=== PATIENT | male | born 1955 | race Caucasian/White ===

== ENCOUNTER 2017-01-11 17:48 | Emergency (ER) | payer MEDICAID ==
[~2017-01-11] VITALS: Ht 188 cm; Wt 96.5 kg
[~2017-01-11 17:48] MED LIST: ACET325T14 PO; AMOX1TAB64 PO; APIX5TAB PO; ASPI-496 PO; BUTA-177 PO; CALC200T56 PO; FOLI-17 PO; FURO-93 PO; Folic Acid PO; HYDR-3237 PO; HYDR-3240 PO; LANS30CA60 PO; LEVE10007 PO; LEVE100S6 PO; LEVE500T8 PO; LEVE750T37 PO; LIDO5JEL4 TP; LISI-167 PO; LISI1POW PO; LISI1TAB3 PO; LORA-170 PO; LORA0.5T PO; LORA10TA3 PO; LOSA100T6 PO; METO25TA35 PO; POTA8CAP PO; PRAV10TA2 PO; PRAV20TA2 PO; RANI150C PO; ROSU40TA PO; THIA100T6 PO; TRAM50TA2 PO; TRAZ50TA18 PO; cholesterol med
[2017-01-11] MEDS ORDERED: SODIUM CHLORIDE 0.9% 1,000 ML IV ONE (17:57)
[2017-01-11] MEDS ORDERED: SODIUM CHLORIDE FLUSH 10ML SYR IVF ONE (18:00)
[2017-01-11 18:15] LABS: HEMATOCRIT 43.2 % (39.2-51.8); HEMOGLOBIN 14.2 g/dL (13.7-18.0); WHITE BLOOD COUNT 7.3 x10^3/uL (3.4-10)
[2017-01-11] MEDS ORDERED: APIX2.5T PO (18:15)
[2017-01-11] MEDS ORDERED: CEFTRIAXONE PMX 1GM/50ML 50 ML IV ONE (18:30)
[2017-01-11] MEDS ORDERED: PHARMACOKINETIC CONSULTATION MC ONE (18:30)
[2017-01-11] MEDS ORDERED: VANCOMYCIN PER PHARMACY MC PRN (18:30)
[2017-01-11] MEDS ORDERED: CEFTRIAXONE PMX 1GM/50ML 50 ML ONE (18:31)
[2017-01-11 18:32] LABS: ASPARTATE AMINO TRANSFERASE 24 U/L (15-37); BLOOD UREA NITROGEN 5 mg/dL (7-18)
[2017-01-11] MEDS ORDERED: MORPHINE SULFATE 4 MG/ML, 1ML ONE ×2 (18:38→20:12)
[2017-01-11] MEDS: MORPHINE SULFATE 4 MG/ML, 1ML IVPush PRN ×2 (18:55→20:14)
[2017-01-11] MEDS ORDERED: VANCOMYCIN 2,000 MG in SODIUM CHLORIDE 0.9% 500 ML IV ONE (19:00)
[2017-01-11 21:30] VITALS: BP 137/97
== END 2017-01-11 21:34 | disposition home or self-care (01) ==
LOC: ED 18:34
DX: L03.116 Cellulitis of left lower limb (principal); E78.5 Hyperlipidemia, unspecified; K21.9 Gastro-esophageal reflux disease without esophagitis; G40.909 Epilepsy, unspecified, not intractable, without status epilepticus; Z88.0 Allergy status to penicillin; Z86.73 Personal history of transient ischemic attack (TIA), and cerebral infarction without residual deficits; Z86.718 Personal history of other venous thrombosis and embolism
CPT/HCPCS: 36415; 71010; 80053; 85025; 93971; 96365; 96366; 96367; 96375; 99285; J0696; J3370; J7030; J7040

== ENCOUNTER 2017-01-12 12:41 | Emergency (ER) | payer MEDICAID ==
[~2017-01-12] VITALS: Ht 188 cm; Wt 96.2 kg
[~2017-01-12 12:41] MED LIST changes: +APIX2.5T PO
[2017-01-12] MEDS ORDERED: KETOROLAC 30 MG/1 ML ONE (13:54)
[2017-01-12] MEDS ORDERED: KETOROLAC 30 MG/1 ML IM ONE (14:00)
[2017-01-12 14:22] VITALS: BP 120/80
== END 2017-01-12 14:25 | disposition home or self-care (01) ==
LOC: ED 13:40
DX: M79.89 Other specified soft tissue disorders (principal)
CPT/HCPCS: 96372; 99283; J1885

== ENCOUNTER 2017-03-23 20:12 | Inpatient (IN) | payer MEDICAID ==
[~2017-03-23] VITALS: Ht 188 cm; Wt 96.0 kg
[2017-03-23] MEDS ORDERED: SODIUM CHLORIDE FLUSH 10ML SYR IVF ONE (21:00)
[2017-03-23] MEDS ORDERED: CLINDAMYCIN PMX 600MG/50ML 50 ML IV ONE (21:00)
[2017-03-23 21:12] LABS: HEMOGLOBIN 14.4 g/dL (13.7-18.0)
[2017-03-23] MEDS ORDERED: CLINDAMYCIN PMX 600MG/50ML 50 ML ONE (21:22)
[2017-03-23] MEDS ORDERED: ACETAMINOPHEN 500 MG TABLET ONE (21:22)
[2017-03-23 21:23] LABS: ASPARTATE AMINO TRANSFERASE 24 U/L (15-37); BLOOD UREA NITROGEN 10 mg/dL (7-18)
[2017-03-23] MEDS ORDERED: ACETAMINOPHEN 500 MG TABLET PO ONE (21:30)
[2017-03-23] MEDS ORDERED: SODIUM CHLORIDE FLUSH 10ML SYR IVF PRN (22:00)
[2017-03-23] MEDS ORDERED: OXYcodone IR 5MG TABLET ONE (22:55)
[2017-03-23] MEDS ORDERED: POLYETHYLENE GLYCOL 17 GM PACKET PO PRN (23:00)
[2017-03-23] MEDS ORDERED: ACETAMINOPHEN 325 MG TABLET PO PRN (23:00)
[2017-03-23] MEDS: SODIUM CHLORIDE FLUSH 10ML SYR IVF SCH (23:00)
[2017-03-23] MEDS ORDERED: LORazepam 0.5MG TABLET PO PRN (23:00)
[2017-03-23] MEDS ORDERED: BISACODYL 10 MG SUPP PR PRN (23:00)
[2017-03-23] MEDS: ROSUVASTATIN CALCIUM PO SCH (23:00)
[2017-03-23] MEDS ORDERED: ONDANSETRON 2MG/ML, 2ML IVPush PRN (23:00)
[2017-03-23 23:25] VITALS: BP 126/83
[2017-03-23] MEDS ORDERED: CRESTOR MC SCH (23:30)
[2017-03-24] MEDS: APIXABAN 2.5 MG TABLET PO SCH ×3 (00:33→21:23)
[2017-03-24] MEDS: METOPROLOL TARTRATE 50 MG TABLET PO SCH ×3 (00:33→21:23)
[2017-03-24] MEDS: LEVETIRACETAM 500 MG TABLET PO SCH ×3 (00:33→21:23)
[2017-03-24 01:10] VITALS: BP 100/65
[2017-03-24] MEDS: OXYcodone IR 5MG TABLET PO PRN ×5 (04:01→20:32)
[2017-03-24 05:30] LABS: HEMATOCRIT 38.4 % (39.2-51.8); HEMOGLOBIN 12.9 g/dL (13.7-18.0); WHITE BLOOD COUNT 4.9 x10^3/uL (3.4-10)
[2017-03-24 05:47] LABS: BLOOD UREA NITROGEN 9 mg/dL (7-18)
[2017-03-24 05:50] LABS: ASPARTATE AMINO TRANSFERASE 21 U/L (15-37)
[2017-03-24] MEDS: CLINDAMYCIN PMX 600MG/50ML 50 ML IV SCH ×3 (05:52→21:23)
[2017-03-24 06:52] VITALS: BP 110/69
[2017-03-24] MEDS ORDERED: FLU VACC QS2017-18 (36MOS+) UP/PF 0.5 ML IM-VACC ONE (08:00)
[2017-03-24] MEDS: SENNA/DOCUSATE TABLET PO SCH (09:20)
[2017-03-24] MEDS: FUROSEMIDE 20 MG/2 ML IV SCH (09:21)
[2017-03-24] MEDS: LORATADINE 10 MG TABLET PO SCH (09:21)
[2017-03-24] MEDS: SODIUM CHLORIDE FLUSH 10ML SYR IVF SCH ×2 (09:21→21:23)
[2017-03-24 12:44] VITALS: BP 119/76
[2017-03-24 19:41] VITALS: BP 118/77
[2017-03-24] MEDS: DIPHENHYDRAMINE 25 MG CAPSULE PO PRN (20:31)
[2017-03-24] MEDS: (Rosuvastatin Calcium** (Crestor**) 20 MG) PO SCH (21:00)
[2017-03-25 00:19] VITALS: BP 101/63
[2017-03-25] MEDS: OXYcodone IR 5MG TABLET PO PRN ×6 (00:24→20:32)
[2017-03-25 05:21] LABS: HEMATOCRIT 38.4 % (39.2-51.8); HEMOGLOBIN 12.8 g/dL (13.7-18.0); WHITE BLOOD COUNT 4.9 x10^3/uL (3.4-10)
[2017-03-25 05:22] LABS: ASPARTATE AMINO TRANSFERASE 13 U/L (15-37); BLOOD UREA NITROGEN 12 mg/dL (7-18)
[2017-03-25 07:07] VITALS: BP 129/82
[2017-03-25] MEDS: FUROSEMIDE 20 MG/2 ML IV SCH (07:30)
[2017-03-25] MEDS: CLINDAMYCIN PMX 600MG/50ML 50 ML IV SCH ×3 (07:30→23:18)
[2017-03-25] MEDS: SODIUM CHLORIDE FLUSH 10ML SYR IVF SCH ×2 (07:30→20:33)
[2017-03-25] MEDS: LORATADINE 10 MG TABLET PO SCH (07:30)
[2017-03-25] MEDS: LEVETIRACETAM 500 MG TABLET PO SCH ×2 (07:31→20:33)
[2017-03-25] MEDS: APIXABAN 2.5 MG TABLET PO SCH (07:31)
[2017-03-25] MEDS: SENNA/DOCUSATE TABLET PO SCH (07:32)
[2017-03-25] MEDS: METOPROLOL TARTRATE 50 MG TABLET PO SCH ×2 (07:32→20:33)
[2017-03-25 13:53] VITALS: BP 106/70
[2017-03-25 19:21] VITALS: BP 110/71
[2017-03-25] MEDS: DIPHENHYDRAMINE 25 MG CAPSULE PO PRN (20:32)
[2017-03-25] MEDS: APIXABAN 5 MG TABLET PO SCH (20:33)
[2017-03-25] MEDS: (Rosuvastatin Calcium** (Crestor**) 20 MG) PO SCH (20:33)
[2017-03-26] MEDS: OXYcodone IR 5MG TABLET PO PRN ×6 (00:50→21:32)
[2017-03-26 01:16] VITALS: BP 116/74
[2017-03-26 07:51] VITALS: BP 119/73
[2017-03-26] MEDS: CLINDAMYCIN PMX 600MG/50ML 50 ML IV SCH ×3 (07:51→23:42)
[2017-03-26] MEDS: SENNA/DOCUSATE TABLET PO SCH (09:00)
[2017-03-26] MEDS: LORATADINE 10 MG TABLET PO SCH (11:33)
[2017-03-26] MEDS: APIXABAN 5 MG TABLET PO SCH ×2 (11:34→21:31)
[2017-03-26] MEDS: LEVETIRACETAM 500 MG TABLET PO SCH ×2 (11:34→21:31)
[2017-03-26] MEDS: METOPROLOL TARTRATE 50 MG TABLET PO SCH ×2 (11:34→21:31)
[2017-03-26] MEDS: FUROSEMIDE 20 MG/2 ML IV SCH (11:35)
[2017-03-26] MEDS: SODIUM CHLORIDE FLUSH 10ML SYR IVF SCH ×2 (11:36→21:32)
[2017-03-26 13:28] VITALS: BP 120/85
[2017-03-26] MEDS: DIPHENHYDRAMINE 25 MG CAPSULE PO PRN ×2 (16:13→23:42)
[2017-03-26 19:23] VITALS: BP 112/75
[2017-03-26] MEDS: (Rosuvastatin Calcium** (Crestor**) 20 MG) PO SCH (21:32)
[2017-03-27 01:10] VITALS: BP 111/73
[2017-03-27] MEDS: OXYcodone IR 5MG TABLET PO PRN ×3 (01:30→09:47)
[2017-03-27 08:00] VITALS: BP 132/83
[2017-03-27] MEDS: CLINDAMYCIN PMX 600MG/50ML 50 ML IV SCH (08:16)
[2017-03-27] MEDS: SODIUM CHLORIDE FLUSH 10ML SYR IVF SCH (08:18)
[2017-03-27] MEDS: LORATADINE 10 MG TABLET PO SCH (08:38)
[2017-03-27] MEDS: APIXABAN 5 MG TABLET PO SCH (08:39)
[2017-03-27] MEDS: LEVETIRACETAM 500 MG TABLET PO SCH (08:40)
[2017-03-27] MEDS: METOPROLOL TARTRATE 50 MG TABLET PO SCH (08:41)
[2017-03-27] MEDS: SENNA/DOCUSATE TABLET PO SCH (08:44)
[2017-03-27] MEDS: FUROSEMIDE 20 MG/2 ML IV SCH (09:42)
[2017-03-27 12:26] VITALS: BP 101/74
[2017-03-27] MEDS ORDERED: POLY17PO5 PO (13:30)
[2017-03-27] MEDS ORDERED: APIX5TAB PO (13:30)
[2017-03-27] MEDS ORDERED: OXYC5TAB3 PO (13:30)
[2017-03-27] MEDS ORDERED: SULF1TAB24 PO (13:30)
[2017-03-27] MEDS ORDERED: LACT1CAP24 PO (13:46)
[2017-03-27] MEDS ORDERED: SULFAMETH./TRIMETHOPRIM DS 800MG/160MG TABLET PO SCH (21:00)
== END 2017-03-27 15:45 | disposition home or self-care (01) | DRG 602 ==
LOC: ED 21:38 → EDIP 22:00 → 3NE 23:08 → DCLOUNGE 03-27 14:50
PROVIDERS: ADMIT Internal Medicine; ATTEND Internal Medicine
DX: L03.115 Cellulitis of right lower limb (principal); E43 Unspecified severe protein-calorie malnutrition; D68.69 Other thrombophilia; E87.1 Hypo-osmolality and hyponatremia; I71.2 Thoracic aortic aneurysm, without rupture; I82.502 Chronic embolism and thrombosis of unspecified deep veins of left lower extremity; D64.9 Anemia, unspecified; Z68.27 Body mass index [BMI] 27.0-27.9, adult; E78.5 Hyperlipidemia, unspecified; G40.909 Epilepsy, unspecified, not intractable, without status epilepticus; I10 Essential (primary) hypertension; I34.0 Nonrheumatic mitral (valve) insufficiency; K21.9 Gastro-esophageal reflux disease without esophagitis; L03.116 Cellulitis of left lower limb; Z79.01 Long term (current) use of anticoagulants; Z80.9 Family history of malignant neoplasm, unspecified; Z85.46 Personal history of malignant neoplasm of prostate; Z85.828 Personal history of other malignant neoplasm of skin; Z86.711 Personal history of pulmonary embolism; Z86.72 Personal history of thrombophlebitis; Z86.73 Personal history of transient ischemic attack (TIA), and cerebral infarction without residual deficits; Z92.3 Personal history of irradiation; Z88.0 Allergy status to penicillin
CPT/HCPCS: 36415; 71010; 80053; 80177; 83605; 83735; 83880; 84100; 85025; 87040; 90686; 93005; 93970; 96365; J1940; Q0163

== ENCOUNTER 2017-12-25 22:43 | Emergency (ER) | payer MEDICAID ==
[~2017-12-25] VITALS: Ht 188 cm; Wt 102.3 kg
[~2017-12-25 22:43] MED LIST changes: +LACT1CAP24 PO; +OXYC5TAB3 PO; +POLY17PO5 PO; +SULF1TAB24 PO; -THIA100T6 PO; +THIA100T67 PO; +TRAZ-136 PO; -TRAZ50TA18 PO
[2017-12-25] MEDS ORDERED: BACITRACIN ZINC OINT 500U/GM, 0.9 GM ONE (23:08)
[2017-12-25] MEDS ORDERED: OXYcodone/APAP 5/325MG TABLET ONE (23:15)
[2017-12-25] MEDS ORDERED: OXYcodone/APAP 5/325MG TABLET PO ONE (23:30)
[2017-12-26 00:25] VITALS: BP 124/78
== END 2017-12-26 00:49 | disposition home or self-care (01) ==
LOC: ED 23:51
DX: S06.0X0A Concussion without loss of consciousness, initial encounter (principal); S16.1XXA Strain of muscle, fascia and tendon at neck level, initial encounter; K21.9 Gastro-esophageal reflux disease without esophagitis; E78.5 Hyperlipidemia, unspecified; G40.909 Epilepsy, unspecified, not intractable, without status epilepticus; W21.03XA Struck by baseball, initial encounter; Y93.64 Activity, baseball; Y92.320 Baseball field as the place of occurrence of the external cause; Y99.8 Other external cause status
CPT/HCPCS: 70450; 72125; 99284

== ENCOUNTER 2018-05-07 08:01 | Emergency (ER) | payer MEDICAID ==
[~2018-05-07] VITALS: Ht 188 cm; Wt 103.2 kg
[~2018-05-07 08:01] MED LIST changes: -LOSA100T6 PO; +LOSA100T7 PO; -TRAZ-136 PO; +TRAZ50TA66 PO
[2018-05-07 08:11] VITALS: BP 126/85
[2018-05-07] MEDS ORDERED: HYDROcodone/APAP 5/325 TABLET ONE (08:59)
[2018-05-07] MEDS ORDERED: SULFAMETH./TRIMETHOPRIM DS 800MG/160MG TABLET ONE (08:59)
[2018-05-07] MEDS ORDERED: SULFAMETH./TRIMETHOPRIM DS 800MG/160MG TABLET PO ONE (09:00)
[2018-05-07] MEDS ORDERED: HYDROcodone/APAP 5/325 TABLET PO ONE (09:00)
[2018-05-07 09:24] LABS: ALBUMIN 3.6 g/dL (3.4-5.0); ANION GAP 5 mmol/L (5-15); CALCIUM 8.6 mg/dL (8.5-10.1); CHLORIDE 106 mmol/L (98-107); CREATININE 1.06 mg/dL (0.7-1.3)
[2018-05-07 09:40] LABS: BASOPHILS # (AUTO) 0.01 x10^3/uL (0-0.1); BASOPHILS % (AUTO) 0 % (0-1); EOSINOPHILS # (AUTO) 0.11 x10^3/uL (0-0.4); EOSINOPHILS % (AUTO) 2 % (1-7); LYMPHOCYTES # (AUTO) 1.06 x10^3/uL (1-3.4); LYMPHOCYTES % (AUTO) 19 % (22-44); MD NO; MEAN CORPUSCULAR HEMOGLOBIN 31.1 pg (27.5-34.5); MEAN CORPUSCULAR HGB CONC 34.5 g/dL (33.2-36.2); MEAN CORPUSCULAR VOLUME 90.1 fL (81-97); MEAN PLATELET VOLUME 7.9 fL (7.4-10.4); MONOCYTES # (AUTO) 0.72 x10^3/uL (0.2-0.8); MONOCYTES % (AUTO) 13 % (2-9); NEUTROPHILS # (AUTO) 3.56 x10^3/uL (1.8-6.8); NEUTROPHILS % (AUTO) 65 % (42-75); PLATELET COUNT 225 x10^3/uL (130-400); RED CELL DISTRIBUTION WIDTH 12.9 % (9.4-14.8)
[2018-05-07] MEDS ORDERED: BACITRACIN ZINC OINT 500U/GM, 0.9 GM ONE (09:42)
== END 2018-05-07 09:57 | disposition home or self-care (01) ==
LOC: ED 09:28
DX: L03.116 Cellulitis of left lower limb (principal)
CPT/HCPCS: 36415; 80048; 82040; 85025; 99284

== ENCOUNTER 2018-06-30 22:10 | Emergency (ER) | payer MEDICAID ==
[~2018-06-30] VITALS: Ht 188 cm; Wt 100.0 kg
[~2018-06-30 22:10] MED LIST changes: +LORA-247 PO; -LORA10TA3 PO; +LOSA100T14 PO; -LOSA100T7 PO
[2018-06-30] MEDS ORDERED: OMNIPAQUE 350 MG/ML, 100ML BOTTLE ONE (22:12)
[2018-06-30] MEDS ORDERED: MORPHINE SULFATE 4 MG/ML, 1ML ONE ×2 (22:16→22:55)
[2018-06-30] MEDS ORDERED: ONDANSETRON 2MG/ML, 2ML ONE (22:16)
[2018-06-30] MEDS ORDERED: SODIUM CHLORIDE FLUSH 10ML SYR IVF ONE (22:30)
[2018-06-30] MEDS ORDERED: ONDANSETRON 2MG/ML, 2ML IVPush ONE (22:30)
[2018-06-30 22:40] LABS: BASOPHILS # (AUTO) 0.01 x10^3/uL (0-0.1); BASOPHILS % (AUTO) 0 % (0-1); EOSINOPHILS # (AUTO) 0.01 x10^3/uL (0-0.4); EOSINOPHILS % (AUTO) 0 % (1-7); LYMPHOCYTES # (AUTO) 1.22 x10^3/uL (1-3.4); LYMPHOCYTES % (AUTO) 12 % (22-44); MD NO; MEAN CORPUSCULAR HEMOGLOBIN 30.8 pg (27.5-34.5); MEAN CORPUSCULAR VOLUME 90.7 fL (81-97); MEAN PLATELET VOLUME 7.3 fL (7.4-10.4); MONOCYTES # (AUTO) 0.96 x10^3/uL (0.2-0.8); MONOCYTES % (AUTO) 9 % (2-9); NEUTROPHILS # (AUTO) 8.32 x10^3/uL (1.8-6.8); NEUTROPHILS % (AUTO) 79 % (42-75); PLATELET COUNT 246 x10^3/uL (130-400); RED CELL DISTRIBUTION WIDTH 13.1 % (9.4-14.8)
[2018-06-30] MEDS: MORPHINE SULFATE 4 MG/ML, 1ML IVPush PRN ×2 (22:49→23:02)
[2018-06-30 22:51] LABS: ALANINE AMINOTRANSFERASE 26 U/L (12-78); ALBUMIN 3.7 g/dL (3.4-5.0); ANION GAP 9 mmol/L (5-15); CALCIUM 9.6 mg/dL (8.5-10.1); CHLORIDE 93 mmol/L (98-107); CREATININE 0.94 mg/dL (0.7-1.3)
--- NOTE | 2018-06-30 22:51 | NUR ---
pt complains of periumbilical pain that started last night. pain has gotten progressively worse. pt states he has had nausea and vomiting and has been constipated. pt placed on cont spo2 and bp monitor, vss. pt medicated per emar
[2018-06-30 22:53] LABS: ALKALINE PHOSPHATASE 55 U/L (45-117); BILIRUBIN,TOTAL 1.1 mg/dL (0.2-1.0); TOTAL PROTEIN 7.8 g/dL (6.4-8.2)
[2018-06-30 22:55] LABS: INTERNATIONAL NORMALIZED RATIO 0.98 (0.93-1.1); PROTHROMBIN TIME 10.4 Seconds (9.6-11.5)
[2018-06-30 23:03] LABS: MICROSCOPIC NOT IND
[2018-06-30 23:09] LABS: CULTURE INDICATED? NO
[2018-07-01] MEDS ORDERED: MORPHINE SULFATE 4 MG/ML, 1ML ONE (00:10)
--- NOTE | 2018-07-01 00:18 | NUR ---
pt's chart up for recheck
[2018-07-01] MEDS ORDERED: MORPHINE SULFATE 4 MG/ML, 1ML IVPush PRN (00:30)
[2018-07-01 01:03] VITALS: BP 158/88
--- NOTE | 2018-07-01 01:03 | NUR ---
PT GIVEN TAXI VOUCHER FOR SAFE DC. ALL PTS QUESTIONS ANSWERED. PT EXPRESSED DISSATISFACTION OF STILL BEING IN PAIN. MD CONSULTED WHOM STATES NO MORE PAIN MEDS. PT INFORMED. PT DC'D AT THIS TIME.
== END 2018-07-01 01:05 | disposition home or self-care (01) ==
LOC: ED 22:45
DX: R11.2 Nausea with vomiting, unspecified (principal); R10.30 Lower abdominal pain, unspecified; E78.5 Hyperlipidemia, unspecified; Z88.0 Allergy status to penicillin; Z86.73 Personal history of transient ischemic attack (TIA), and cerebral infarction without residual deficits
CPT/HCPCS: 36415; 74177; 80053; 81003; 83690; 85025; 85610; 85730; 96374; 96375; 99284; J2405; Q9967

== ENCOUNTER 2018-09-05 20:34 | Emergency (ER) | payer MEDICAID ==
[~2018-09-05] VITALS: Ht 188 cm; Wt 102.4 kg
--- NOTE | 2018-09-05 21:00 | NUR ---
LATE ENTRY FOR 21:00. PT C/O ATRAUMATIC RIGHT ARM BRUISING AND SWELLING X 4 DAYS. OTHEREWISE COMPLAINT FREE. ON ELAQUIS FOR HX OF CVA AND PE'S AND DVT. AORTIC ANEURYSM. PROSTATE CANCER. PT'S AOX4. RESPS EVEN AND UNLABORED. BP/SPO2 MONITORS IN PLACE. CALL LIGHT WITHIN REACH.
[2018-09-05 21:21] VITALS: BP 116/74
[2018-09-05 21:48] LABS: BASOPHILS # (AUTO) 0.02 x10^3/uL (0-0.1); BASOPHILS % (AUTO) 0 % (0-1); EOSINOPHILS # (AUTO) 0.03 x10^3/uL (0-0.4); EOSINOPHILS % (AUTO) 0 % (1-7); LYMPHOCYTES # (AUTO) 1.41 x10^3/uL (1-3.4); LYMPHOCYTES % (AUTO) 21 % (22-44); MD NO; MEAN CORPUSCULAR HEMOGLOBIN 29.6 pg (27.5-34.5); MEAN CORPUSCULAR HGB CONC 32.6 g/dL (33.2-36.2); MEAN CORPUSCULAR VOLUME 90.8 fL (81-97); MEAN PLATELET VOLUME 7.1 fL (7.4-10.4); MONOCYTES # (AUTO) 0.65 x10^3/uL (0.2-0.8); MONOCYTES % (AUTO) 10 % (2-9); NEUTROPHILS # (AUTO) 4.74 x10^3/uL (1.8-6.8); NEUTROPHILS % (AUTO) 69 % (42-75); PLATELET COUNT 264 x10^3/uL (130-400); RED BLOOD COUNT 4.27 x10^6/uL (4.38-5.82); RED CELL DISTRIBUTION WIDTH 13.9 % (9.4-14.8)
--- NOTE | 2018-09-05 21:50 | NUR ---
PT PROVIDED ICE PACK FOR LEFT ELBOW.
[2018-09-05 21:57] LABS: ALANINE AMINOTRANSFERASE 27 U/L (12-78); ALBUMIN 3.5 g/dL (3.4-5.0); ANION GAP 7 mmol/L (5-15); CALCIUM 8.6 mg/dL (8.5-10.1); CHLORIDE 104 mmol/L (98-107); CREATININE 0.91 mg/dL (0.7-1.3)
[2018-09-05 21:59] LABS: ALKALINE PHOSPHATASE 50 U/L (45-117); BILIRUBIN,TOTAL 0.3 mg/dL (0.2-1.0); TOTAL PROTEIN 6.9 g/dL (6.4-8.2)
[2018-09-05 22:02] LABS: INTERNATIONAL NORMALIZED RATIO 0.96 (0.93-1.1); PROTHROMBIN TIME 10.1 Seconds (9.6-11.5)
--- NOTE | 2018-09-05 22:22 | NUR ---
EMT APPLIED ETTA WRAP AT THIS TIME. PT TOLERATED WELL.
--- NOTE | 2018-09-05 22:28 | NUR ---
PT GIVEN DC INSTRUCTIONS. PT'S AOX4. RESPS EVEN AND UNLABORED. PT AMB TO DC WITH STEADY GAIT. NO ACUTE DISTRESS AT DC.
== END 2018-09-05 22:29 | disposition home or self-care (01) ==
LOC: ED 21:35
DX: S50.11XA Contusion of right forearm, initial encounter (principal); M70.21 Olecranon bursitis, right elbow; K21.9 Gastro-esophageal reflux disease without esophagitis; G40.909 Epilepsy, unspecified, not intractable, without status epilepticus; Z88.0 Allergy status to penicillin; X58.XXXA Exposure to other specified factors, initial encounter; Y93.89 Activity, other specified; Y92.89 Other specified places as the place of occurrence of the external cause; Y99.8 Other external cause status
CPT/HCPCS: 36415; 80053; 85025; 85610; 85730; 99283

== ENCOUNTER 2018-09-09 10:03 | Emergency (ER) | payer MEDICAID ==
[~2018-09-09] VITALS: Ht 188 cm; Wt 100.4 kg
[2018-09-09 10:05] VITALS: BP 155/100
--- NOTE | 2018-09-09 10:19 | NUR ---
RIGHT ELBOW SWELLING WITH BRUISING/BLOOD UNDER SKIN WHOLE FOREARM THAT STARTED DEVELOPING A WEEK AGO. PT HAS HAD IT WRAPPED WITH AN ETTA. CONCERNED BECAUSE HE THOUGHT BRUISING WOULD IMPROVE BY NOW AND ON BLOOD THINNER
--- NOTE | 2018-09-09 10:39 | NUR ---
ETTA APPLIED TO ELBOW BY TECH
== END 2018-09-09 10:49 | disposition home or self-care (01) ==
LOC: ED 10:40
DX: M70.21 Olecranon bursitis, right elbow (principal); K21.9 Gastro-esophageal reflux disease without esophagitis; E78.5 Hyperlipidemia, unspecified; Z86.73 Personal history of transient ischemic attack (TIA), and cerebral infarction without residual deficits; Z85.46 Personal history of malignant neoplasm of prostate; Y93.89 Activity, other specified; Z88.0 Allergy status to penicillin
CPT/HCPCS: 99282

== ENCOUNTER 2018-09-28 06:33 | Emergency (ER) | payer MEDICAID ==
[~2018-09-28] VITALS: Ht 188 cm; Wt 100.0 kg
--- NOTE | 2018-09-28 07:05 | NUR ---
PT AMBULATORY TO ROOM WITH STEADY GAIT.
--- NOTE | 2018-09-28 07:09 | NUR ---
PT PRESENTS TO ED FOR INTERMITTENT DIZZINESS AND LIGHTHEADEDNESS. PT STATES HE HAD ONE EPISODE LAST WED CAUSING A NEAR FALL TO HIS KNEES. DENIES LOC WITH THAT EPISODE. NO RECENT FALLS OR TRAUMA. AGAIN LAST NIGHT PT STATES HE BECAME LIGHTHEADED AND WAS TOLD TO BE SEEN IN ED BY HIS NEUROLOGIST. PT DENIES SYMPTOMS AT THIS TIME. HX OF STROKE. NEURO INTACT AT THIS TIME. RESTING ON GURNEY. CP MONITORS IN PLACE. CALL LIGHT IN REACH.
[2018-09-28 07:44] LABS: BASOPHILS # (AUTO) 0.04 x10^3/uL (0-0.1); BASOPHILS % (AUTO) 1 % (0-1); EOSINOPHILS # (AUTO) 0.05 x10^3/uL (0-0.4); EOSINOPHILS % (AUTO) 1 % (1-7); LYMPHOCYTES # (AUTO) 1.37 x10^3/uL (1-3.4); LYMPHOCYTES % (AUTO) 18 % (22-44); MD NO; MEAN CORPUSCULAR HEMOGLOBIN 29.5 pg (27.5-34.5); MEAN CORPUSCULAR HGB CONC 31.7 g/dL (33.2-36.2); MEAN PLATELET VOLUME 6.6 fL (7.4-10.4); MONOCYTES # (AUTO) 0.67 x10^3/uL (0.2-0.8); MONOCYTES % (AUTO) 9 % (2-9); NEUTROPHILS % (AUTO) 71 % (42-75); PLATELET COUNT 241 x10^3/uL (130-400); RED CELL DISTRIBUTION WIDTH 13.4 % (9.4-14.8)
[2018-09-28 07:46] LABS: ALBUMIN 3.2 g/dL (3.4-5.0); ANION GAP 6 mmol/L (5-15); CALCIUM 8.4 mg/dL (8.5-10.1); CHLORIDE 101 mmol/L (98-107); CREATININE 0.86 mg/dL (0.7-1.3); PROTHROMBIN TIME 10.5 Seconds (9.6-11.5)
[2018-09-28] MEDS ORDERED: POTASSIUM CHLORIDE 20 MEQ TAB.ER.PRT PO ONE (08:30)
[2018-09-28] MEDS ORDERED: POTASSIUM CHLORIDE 20 MEQ TAB.ER.PRT ONE (09:19)
--- NOTE | 2018-09-28 09:29 | NUR ---
REPORT FROM TRI ALCARAZ, ASSUMED CARE OF PT AT 0900. POTASSIUM PROVIDED PER ERP ORDER. CALL LIGHT WITHIN REACH.
[2018-09-28 10:38] VITALS: BP 124/61
== END 2018-09-28 10:48 | disposition home or self-care (01) ==
LOC: ED 07:59
DX: R55 Syncope and collapse (principal); E87.6 Hypokalemia; K21.9 Gastro-esophageal reflux disease without esophagitis; G40.909 Epilepsy, unspecified, not intractable, without status epilepticus; E78.5 Hyperlipidemia, unspecified; Z86.73 Personal history of transient ischemic attack (TIA), and cerebral infarction without residual deficits; Z85.46 Personal history of malignant neoplasm of prostate
CPT/HCPCS: 36415; 70450; 80048; 82040; 85025; 85610; 85730; 93005; 99284

== ENCOUNTER 2018-11-02 06:27 | Emergency (ER) | payer MEDICAID ==
[~2018-11-02] VITALS: Ht 188 cm; Wt 100.0 kg
--- NOTE | 2018-11-02 06:41 | NUR ---
assessment made. PA at bedside.
[2018-11-02] MEDS ORDERED: L.E.T SOLUTION TP ONE ×3 (06:53→07:08)
[2018-11-02] MEDS ORDERED: HYDROcodone/APAP 5/325 TABLET ONE (06:53)
[2018-11-02] MEDS ORDERED: HYDROcodone/APAP 5/325 TABLET PO ONE (07:00)
--- NOTE | 2018-11-02 07:03 | NUR ---
motion picture camera lens technician at bedside. patient medicated for pain. LET applied to skin tear. report to KIERAN Gonzales.
[2018-11-02 07:52] VITALS: BP 136/82
--- NOTE | 2018-11-02 07:54 | NUR ---
RIGHT SILVER SKIN TEAR CLEANED WITH DERMAL WOUND CLEANSER, XEROFORM GAUZE PLACED, 4X4 AND KERLEX WRAP. ADDITIONAL DRESSING SUPPLIES PROVIDED. Patient/Caregiver given discharge instructions and they have confirmed that they understand the instructions. Patient ambulatory with steady gait.
== END 2018-11-02 07:55 | disposition home or self-care (01) ==
LOC: ED 07:30
DX: S81.801A Unspecified open wound, right lower leg, initial encounter (principal); E78.5 Hyperlipidemia, unspecified; G40.909 Epilepsy, unspecified, not intractable, without status epilepticus; Z86.73 Personal history of transient ischemic attack (TIA), and cerebral infarction without residual deficits; Z88.0 Allergy status to penicillin; X58.XXXA Exposure to other specified factors, initial encounter; Y93.89 Activity, other specified; Y92.009 Unspecified place in unspecified non-institutional (private) residence as the place of occurrence of the external cause; Y99.8 Other external cause status
CPT/HCPCS: 99283

== ENCOUNTER 2018-11-02 18:30 | Emergency (ER) | payer MEDICAID ==
[~2018-11-02] VITALS: Ht 188 cm; Wt 103.7 kg
[2018-11-02 18:32] VITALS: BP 143/88
== END 2018-11-02 19:13 | disposition home or self-care (01) ==
LOC: ED 18:44
DX: S81.811A Laceration without foreign body, right lower leg, initial encounter (principal); K21.9 Gastro-esophageal reflux disease without esophagitis; G40.909 Epilepsy, unspecified, not intractable, without status epilepticus; Z86.73 Personal history of transient ischemic attack (TIA), and cerebral infarction without residual deficits; Z85.46 Personal history of malignant neoplasm of prostate; X58.XXXA Exposure to other specified factors, initial encounter; Y93.89 Activity, other specified; Y92.89 Other specified places as the place of occurrence of the external cause; Y99.8 Other external cause status
CPT/HCPCS: 99282

== ENCOUNTER 2018-11-13 16:40 | Emergency (ER) | payer MEDICAID ==
[~2018-11-13] VITALS: Ht 188 cm; Wt 101.0 kg
--- NOTE | 2018-11-13 18:15 | NUR ---
PT AMBULATORY TO ROOM FROM LOBBY.
[2018-11-13 18:44] LABS: BASOPHILS # (AUTO) 0.03 x10^3/uL (0-0.1); BASOPHILS % (AUTO) 1 % (0-1); EOSINOPHILS # (AUTO) 0.13 x10^3/uL (0-0.4); EOSINOPHILS % (AUTO) 2 % (1-7); LYMPHOCYTES # (AUTO) 1.72 x10^3/uL (1-3.4); LYMPHOCYTES % (AUTO) 28 % (22-44); MD NO; MEAN CORPUSCULAR HEMOGLOBIN 31.2 pg (27.5-34.5); MEAN CORPUSCULAR HGB CONC 33.3 g/dL (33.2-36.2); MEAN CORPUSCULAR VOLUME 93.8 fL (81-97); MEAN PLATELET VOLUME 7.1 fL (7.4-10.4); MONOCYTES % (AUTO) 11 % (2-9); NEUTROPHILS % (AUTO) 58 % (42-75); PLATELET COUNT 287 x10^3/uL (130-400); RED BLOOD COUNT 4.63 x10^6/uL (4.38-5.82); RED CELL DISTRIBUTION WIDTH 12.5 % (9.4-14.8)
[2018-11-13 18:56] LABS: ALBUMIN 3.6 g/dL (3.4-5.0); ANION GAP 9 mmol/L (5-15); CHLORIDE 100 mmol/L (98-107); CREATININE 0.86 mg/dL (0.7-1.3)
[2018-11-13] MEDS ORDERED: OXYcodone/APAP 10/325MG TABLET ONE (19:18)
--- NOTE | 2018-11-13 19:24 | NUR ---
REPORT FROM NEAL ALCARAZ. PT HERE FOR WOUND TO RIGHT SILVER. PT MEDICATED FOR PAIN. VSS. CALL LIGHT IN REACH
[2018-11-13] MEDS ORDERED: OXYcodone/APAP 10/325MG TABLET PO ONE (19:30)
[2018-11-13 20:07] VITALS: BP 142/83
== END 2018-11-13 20:09 | disposition home or self-care (01) ==
LOC: ED 19:11
DX: M25.561 Pain in right knee (principal); Z48.01 Encounter for change or removal of surgical wound dressing; G40.909 Epilepsy, unspecified, not intractable, without status epilepticus; E78.5 Hyperlipidemia, unspecified; Z86.73 Personal history of transient ischemic attack (TIA), and cerebral infarction without residual deficits; Z85.46 Personal history of malignant neoplasm of prostate
CPT/HCPCS: 36415; 80048; 82040; 85025; 99284

== ENCOUNTER 2020-02-16 12:04 | Emergency (ER) | payer MEDICAID ==
[~2020-02-16] VITALS: Ht 182.9 cm; Wt 103.8 kg
[~2020-02-16 12:04] MED LIST changes: +LISI1TAB23 PO; -LISI1TAB3 PO; -POTA8CAP PO; +POTA8CAP20 PO
[2020-02-16 12:14] VITALS: BP 144/84
--- NOTE | 2020-02-16 12:51 | NUR ---
Pt arrived for left foot swelling and discoloration. pt reports his feet are normally swollen due to retaining fluid alot. Pt reports that his left foot is very painful. Pt has purple and pale white discoloration. Using bedside ultrasoung arteries were found and doppler color flow achieved. ELIGIO Fountain was able to palpate pulse to left foot as well. Pt in bed and awaiting further orders. call light in reach.
[2020-02-16] MEDS ORDERED: HYDROcodone/APAP 5/325 TABLET ONE (13:02)
--- NOTE | 2020-02-16 13:04 | NUR ---
Pt medicated per emar.
[2020-02-16 13:05] LABS: BASOPHILS % (AUTO) 1 % (0-1); EOSINOPHILS % (AUTO) 0 % (1-7); LYMPHOCYTES % (AUTO) 16 % (22-44); MEAN CORPUSCULAR HEMOGLOBIN 29.7 pg (27.5-34.5); MEAN CORPUSCULAR HGB CONC 32.5 g/dL (33.2-36.2); MEAN PLATELET VOLUME 7.3 fL (7.4-10.4); MONOCYTES % (AUTO) 9 % (2-9); NEUTROPHILS % (AUTO) 75 % (42-75); PLATELET COUNT 218 x10^3/uL (130-400); RED BLOOD COUNT 4.52 x10^6/uL (4.38-5.82)
[2020-02-16 13:06] LABS: MD NO
[2020-02-16 13:29] LABS: ALANINE AMINOTRANSFERASE 23 U/L (12-78); ALBUMIN 3.3 g/dL (3.4-5.0); ANION GAP 6 mmol/L (5-15); CALCIUM 9.1 mg/dL (8.5-10.1); CHLORIDE 106 mmol/L (98-107); CREATININE 0.79 mg/dL (0.7-1.3)
[2020-02-16] MEDS ORDERED: HYDROcodone/APAP 5/325 TABLET PO ONE (13:30)
[2020-02-16 13:31] LABS: ALKALINE PHOSPHATASE 34 U/L (45-117); BILIRUBIN,TOTAL 0.5 mg/dL (0.2-1.0); TOTAL PROTEIN 6.5 g/dL (6.4-8.2)
--- NOTE | 2020-02-16 15:15 | NUR ---
Provider to bedside and informing pt of poc.
--- NOTE | 2020-02-16 16:20 | NUR ---
Patient/Caregiver given discharge instructions and they have confirmed that they understand the instructions. Patient ambulatory with steady gait.
== END 2020-02-16 16:22 | disposition home or self-care (01) ==
LOC: ED 14:45
DX: S80.12XA Contusion of left lower leg, initial encounter (principal); I82.432 Acute embolism and thrombosis of left popliteal vein; M79.89 Other specified soft tissue disorders; K21.9 Gastro-esophageal reflux disease without esophagitis; E87.6 Hypokalemia; G40.909 Epilepsy, unspecified, not intractable, without status epilepticus; Z85.9 Personal history of malignant neoplasm, unspecified; X58.XXXA Exposure to other specified factors, initial encounter; Y93.89 Activity, other specified; Y92.89 Other specified places as the place of occurrence of the external cause; Y99.8 Other external cause status
CPT/HCPCS: 36415; 80053; 85025; 99284

== ENCOUNTER 2020-03-02 21:44 | Emergency (ER) | payer MEDICAID ==
[~2020-03-02] VITALS: Ht 188 cm; Wt 104.0 kg
--- NOTE | 2020-03-02 22:02 | NUR ---
64 YO M CC OF L FOOT PAIN, SWELLING, AND REDNESS. HX OF DVT, SWITCHED TO XARELTO 1 WEEK AGO, WAS ON ELIGUIS BEFORE. 8/10 PAIN IN ANKLE AND CALF. 3+ PEDAL EDEMA NON PITTING.
[2020-03-02] MEDS ORDERED: MORPHINE SULFATE 4 MG/ML, 1ML IVPush ONE (22:30)
[2020-03-02] MEDS ORDERED: ONDANSETRON 2MG/ML, 2ML IVPush ONE (22:30)
[2020-03-02] MEDS ORDERED: ONDANSETRON 2MG/ML, 2ML ONE (22:35)
[2020-03-02] MEDS ORDERED: MORPHINE SULFATE 4 MG/ML, 1ML ONE (22:35)
[2020-03-02 22:37] LABS: BASOPHILS % (AUTO) 0 % (0-1); EOSINOPHILS % (AUTO) 0 % (1-7); LYMPHOCYTES % (AUTO) 14 % (22-44); MEAN CORPUSCULAR HEMOGLOBIN 29.4 pg (27.5-34.5); MEAN CORPUSCULAR HGB CONC 32.3 g/dL (33.2-36.2); MEAN PLATELET VOLUME 7.4 fL (7.4-10.4); MONOCYTES % (AUTO) 10 % (2-9); NEUTROPHILS % (AUTO) 75 % (42-75); PLATELET COUNT 236 x10^3/uL (130-400); RED BLOOD COUNT 4.69 x10^6/uL (4.38-5.82); RED CELL DISTRIBUTION WIDTH 14.1 % (9.4-14.8)
--- NOTE | 2020-03-02 22:45 | NUR ---
US AT BEDSIDE. MEDICATED FOR PAIN
[2020-03-02 22:47] LABS: ANION GAP 7 mmol/L (5-15); CALCIUM 9.2 mg/dL (8.5-10.1); CHLORIDE 105 mmol/L (98-107); CREATININE 0.96 mg/dL (0.7-1.3)
[2020-03-02 23:19] LABS: MD SCAN
--- NOTE | 2020-03-02 23:51 | NUR ---
DENIES ANY OTHER NEEDS AT THIS TIME
[2020-03-03 00:07] VITALS: BP 130/87
== END 2020-03-03 00:14 | disposition home or self-care (01) ==
LOC: ED 22:35
DX: I82.432 Acute embolism and thrombosis of left popliteal vein (principal); K21.9 Gastro-esophageal reflux disease without esophagitis; G43.909 Migraine, unspecified, not intractable, without status migrainosus; Z85.46 Personal history of malignant neoplasm of prostate; Z86.718 Personal history of other venous thrombosis and embolism; Z86.73 Personal history of transient ischemic attack (TIA), and cerebral infarction without residual deficits
CPT/HCPCS: 36415; 80048; 85025; 93971; 96374; 96375; 99284; J2270; J2405; 96372

== ENCOUNTER 2020-07-30 08:13 | Emergency (ER) | payer MEDICAID ==
[~2020-07-30] VITALS: Ht 188 cm; Wt 107.1 kg
[~2020-07-30 08:13] MED LIST changes: -FOLI-17 PO; +FOLI1TAB32 PO; +HYDR-1067 PO; -HYDR-3240 PO; -OXYC5TAB3 PO; +OXYC5TAB98 PO
--- NOTE | 2020-07-30 08:21 | NUR ---
triage: patient has hx terminal cancer prostate diagnosed 2018 had radiation twice. Today he arrives with two days of ankle pain r>left and reports its purple and swollen, no trama; history of ble edema. reports history of stroke 7 years ago.
--- NOTE | 2020-07-30 08:30 | NUR ---
65 yo m w/ c/0 4 days x r. ankle pain and discoloration and redness, Dr. Cordova at bedside, pt states he also has r. shoulder pain that started yesterday. pt has visible bilateral edema. patient attached to all monitors. joe cheema. Addendum: 07/30/20 at 0839 by LEVI 65 yo m w/ c/0 4 days x l. ankle pain and discoloration and redness, Dr. Cordova at bedside, pt states he also has r. shoulder pain that started yesterday. pt has visible bilateral edema. patient attached to all monitors. joe cheema.
[2020-07-30] MEDS ORDERED: HYDROcodone/APAP 5/325 TABLET ONE (08:45)
[2020-07-30 08:59] LABS: BASOPHILS % (AUTO) 1 % (0-1); EOSINOPHILS % (AUTO) 1 % (1-7); LYMPHOCYTES % (AUTO) 11 % (22-44); MD NO; MEAN CORPUSCULAR HEMOGLOBIN 31.4 pg (27.5-34.5); MEAN CORPUSCULAR HGB CONC 33.5 g/dL (33.2-36.2); MEAN PLATELET VOLUME 6.9 fL (7.4-10.4); MONOCYTES % (AUTO) 10 % (2-9); NEUTROPHILS % (AUTO) 78 % (42-75); PLATELET COUNT 242 x10^3/uL (130-400); RED BLOOD COUNT 4.08 x10^6/uL (4.38-5.82); RED CELL DISTRIBUTION WIDTH 14.8 % (9.4-14.8)
[2020-07-30] MEDS ORDERED: HYDROcodone/APAP 5/325 TABLET PO ONE (09:00)
[2020-07-30] MEDS ORDERED: SODIUM CHLORIDE FLUSH 10ML SYR IVF ONE (09:00)
[2020-07-30 09:09] LABS: ALBUMIN 3.2 g/dL (3.4-5.0); ANION GAP 7 mmol/L (5-15); CALCIUM 8.5 mg/dL (8.5-10.1); CHLORIDE 104 mmol/L (98-107)
[2020-07-30 09:14] LABS: ALANINE AMINOTRANSFERASE 24 U/L (12-78); ALKALINE PHOSPHATASE 34 U/L (45-117); BILIRUBIN,TOTAL 0.4 mg/dL (0.2-1.0); CREATININE 1.07 mg/dL (0.7-1.3); TOTAL PROTEIN 6.4 g/dL (6.4-8.2)
--- NOTE | 2020-07-30 09:33 | NUR ---
patient states relief with norco, vss, nadn
[2020-07-30 10:15] VITALS: BP 118/81
== END 2020-07-30 10:21 | disposition home or self-care (01) ==
LOC: ED 10:05
DX: L03.115 Cellulitis of right lower limb (principal); M25.511 Pain in right shoulder; M79.605 Pain in left leg; M79.604 Pain in right leg; M79.89 Other specified soft tissue disorders; E78.5 Hyperlipidemia, unspecified; R00.1 Bradycardia, unspecified; G40.909 Epilepsy, unspecified, not intractable, without status epilepticus; K21.9 Gastro-esophageal reflux disease without esophagitis; Z86.73 Personal history of transient ischemic attack (TIA), and cerebral infarction without residual deficits
CPT/HCPCS: 36415; 71045; 80053; 83880; 85025; 93005; 99285

== ENCOUNTER 2020-09-27 20:45 | Emergency (ER) | payer MEDICAID ==
[~2020-09-27] VITALS: Ht 188 cm; Wt 104.0 kg
[~2020-09-27 20:45] MED LIST changes: -HYDR-1067 PO; +HYDR-2214 PO; +SULF-23 PO; -SULF1TAB24 PO
[2020-09-27] MEDS ORDERED: LIDOCAINE 1%-EPI 1:100K, 20ML INFIL ONE (21:30)
[2020-09-27 21:59] LABS: BASOPHILS % (AUTO) 1 % (0-1); EOSINOPHILS % (AUTO) 1 % (1-7); LYMPHOCYTES % (AUTO) 17 % (22-44); MD NO; MEAN CORPUSCULAR HEMOGLOBIN 31.2 pg (27.5-34.5); MEAN CORPUSCULAR HGB CONC 32.9 g/dL (33.2-36.2); MONOCYTES % (AUTO) 7 % (2-9); NEUTROPHILS % (AUTO) 75 % (42-75); PLATELET COUNT 251 x10^3/uL (130-400); RED BLOOD COUNT 4.32 x10^6/uL (4.38-5.82); RED CELL DISTRIBUTION WIDTH 13.6 % (9.4-14.8)
[2020-09-27 23:28] VITALS: BP 137/83
--- NOTE | 2020-09-27 23:51 | NUR ---
Patient given discharge instructions and they have confirmed that they understand the instructions. Patient ambulatory with steady gait. No questions at time of discharge.
== END 2020-09-27 23:58 | disposition home or self-care (01) ==
LOC: ED 21:15
DX: S71.112A Laceration without foreign body, left thigh, initial encounter (principal); S70.12XA Contusion of left thigh, initial encounter; I10 Essential (primary) hypertension; Z86.718 Personal history of other venous thrombosis and embolism; Z86.73 Personal history of transient ischemic attack (TIA), and cerebral infarction without residual deficits; W22.8XXA Striking against or struck by other objects, initial encounter; Y93.89 Activity, other specified; Y92.89 Other specified places as the place of occurrence of the external cause; Y99.8 Other external cause status
CPT/HCPCS: 12002; 36415; 85025; 99284

== ENCOUNTER → 2020-11-03 | Outpatient (CLI) | payer MEDICAID ==
[~2020-11-03] MED LIST changes: +OMNIPAQUE 350 MG/ML, 100ML BOTTLE ONE
== END | disposition home or self-care (01) ==
LOC: RAD 09:03
PROVIDERS: ATTEND Family Medicine
DX: R10.30 Lower abdominal pain, unspecified (principal); I25.10 Atherosclerotic heart disease of native coronary artery without angina pectoris
CPT/HCPCS: 36415; 74177; 82565; Q9967

== ENCOUNTER 2020-11-07 13:20 | Emergency (ER) | payer MEDICAID ==
[~2020-11-07] VITALS: Ht 188 cm; Wt 105.8 kg
[~2020-11-07 13:20] MED LIST changes: -OMNIPAQUE 350 MG/ML, 100ML BOTTLE ONE
[2020-11-07 14:09] VITALS: BP 155/90
--- NOTE | 2020-11-07 15:00 | NUR ---
Notified by registration staff at this time that this patient signed paper to leave. Unable to speak with pt as he has already left the ED. Pt lwbs.
[2020-11-08] MEDS ORDERED: TORS10TA4 PO (09:14)
[2020-11-08] MEDS ORDERED: RIVA20TA PO (09:14)
[2020-11-08] MEDS ORDERED: SPIR25TA5 PO (09:14)
[2020-11-08] MEDS ORDERED: BACL20TA PO (09:14)
[2020-11-08] MEDS ORDERED: LOSA25TA25 PO (09:14)
== END 2020-11-07 15:27 | disposition left against medical advice (07) ==
LOC: ED 14:00
DX: R10.9 Unspecified abdominal pain (principal); Z53.21 Procedure and treatment not carried out due to patient leaving prior to being seen by health care provider

== ENCOUNTER 2020-11-08 08:43 | Emergency (ER) | payer MEDICAID ==
[~2020-11-08] VITALS: Ht 188 cm; Wt 105.1 kg
[2020-11-08] MEDS ORDERED: LOSA25TA25 PO (09:14)
[2020-11-08] MEDS ORDERED: BACL20TA PO (09:14)
[2020-11-08] MEDS ORDERED: RIVA20TA PO (09:14)
[2020-11-08] MEDS ORDERED: SPIR25TA5 PO (09:14)
[2020-11-08] MEDS ORDERED: TORS10TA4 PO (09:14)
--- NOTE | 2020-11-08 09:18 | NUR ---
SAME TRIAGE NOTE. PT C/O SIGNIFICANT PAIN FROM UMBILICAL HERNIA. HAS SEEN GI BUT NO SURGERY SCHEDULED YET. PT ALSO C/O INCREASED SWELLING TO L LOWER LEG/FOOT, STATES HASN'T BEEN TAKING HIS TORSEMIDE. HX PE'S/DVT'S. ALSO RAN OUT OF OXYCODONE 2 DAYS AGO.
--- NOTE | 2020-11-08 09:21 | NUR ---
ERP AT NOW.
[2020-11-08] MEDS ORDERED: ONDANSETRON 2MG/ML, 2ML IVPush ONE (09:30)
[2020-11-08] MEDS ORDERED: ONDANSETRON 2MG/ML, 2ML ONE (09:43)
[2020-11-08] MEDS ORDERED: MORPHINE SULFATE 4 MG/ML, 1ML ONE ×2 (09:44→10:17)
[2020-11-08] MEDS: MORPHINE SULFATE 4 MG/ML, 1ML IVPush PRN ×2 (09:47→10:20)
--- NOTE | 2020-11-08 09:53 | NUR ---
PT MEDICATED FOR PAIN. UNDERSTANDS POC.
[2020-11-08 10:09] LABS: ALANINE AMINOTRANSFERASE 23 U/L (12-78); ANION GAP 9 mmol/L (5-15); CALCIUM 8.5 mg/dL (8.5-10.1); CHLORIDE 110 mmol/L (98-107); CREATININE 0.66 mg/dL (0.7-1.3)
[2020-11-08 10:11] LABS: ALKALINE PHOSPHATASE 39 U/L (45-117); BILIRUBIN,TOTAL 0.3 mg/dL (0.2-1.0); TOTAL PROTEIN 6.1 g/dL (6.4-8.2)
--- NOTE | 2020-11-08 10:15 | NUR ---
US AT BS NOW.
--- NOTE | 2020-11-08 10:22 | NUR ---
PT HAD NO RELIEF OF HERNIA PAIN AFTER FIRST DOSE OF MORPHINE. MEDICATED WITH SECOND DOSE PER ORDERS. US OF L LEG BEING DONE AT .
[2020-11-08 10:33] LABS: BASOPHILS % (AUTO) 0 % (0-1); EOSINOPHILS % (AUTO) 1 % (1-7); LYMPHOCYTES % (AUTO) 14 % (22-44); MEAN CORPUSCULAR HEMOGLOBIN 31.5 pg (27.5-34.5); MEAN CORPUSCULAR HGB CONC 33.4 g/dL (33.2-36.2); MEAN PLATELET VOLUME 7.4 fL (7.4-10.4); MONOCYTES % (AUTO) 9 % (2-9); NEUTROPHILS % (AUTO) 76 % (42-75); PLATELET COUNT 232 x10^3/uL (130-400); RED BLOOD COUNT 4.13 x10^6/uL (4.38-5.82); RED CELL DISTRIBUTION WIDTH 13.7 % (9.4-14.8)
--- NOTE | 2020-11-08 10:40 | NUR ---
PT VERBALIZES RELIEF OF ABD PAIN AFTER SECOND DOSE OF MORPHINE.
[2020-11-08 11:00] VITALS: BP 144/96
--- NOTE | 2020-11-08 11:38 | NUR ---
PT RETURNS FROM CT.
[2020-11-08 11:39] LABS: MICROSCOPIC NOT IND
[2020-11-08] MEDS ORDERED: OMNIPAQUE 350 MG/ML, 100ML BOTTLE ONE (11:43)
--- NOTE | 2020-11-08 13:19 | NUR ---
PT AMBULATED TO BR WITHOUT DIFFICULTY. AWAITING CT RESULT.
--- NOTE | 2020-11-08 13:52 | NUR ---
ERP WAS IN FOR RECHECK; PT TO BE DISCHARGED.
--- NOTE | 2020-11-08 14:10 | NUR ---
D/C INSTRUCTIONS & F/U APPT'S WITH VASCULAR SURGEON AND GENERAL SURGEON RV'WD WITH PT. INSTRUCTED PT TO RETURN TO ED FOR WORSENING SYMPTOMS. AMBULATED OUT OF ED WITHOUT DIFFICULTY.
== END 2020-11-08 14:17 | disposition home or self-care (01) ==
LOC: ED 08:55
DX: K42.9 Umbilical hernia without obstruction or gangrene (principal); I82.502 Chronic embolism and thrombosis of unspecified deep veins of left lower extremity; K21.9 Gastro-esophageal reflux disease without esophagitis; E78.5 Hyperlipidemia, unspecified; I10 Essential (primary) hypertension; Z86.73 Personal history of transient ischemic attack (TIA), and cerebral infarction without residual deficits
CPT/HCPCS: 36415; 74177; 80053; 81003; 83605; 85025; 93971; 96374; 96375; 96376; 99285; J2270; J2405; Q9967

== ENCOUNTER 2020-12-05 10:16 | Inpatient (IN) | payer MEDICAID ==
[~2020-12-05] VITALS: Ht 188 cm; Wt 117.9 kg
[~2020-12-05 10:16] MED LIST changes: +BACL20TA PO; +LOSA25TA25 PO; +RIVA20TA PO; +SPIR25TA5 PO; +TORS10TA4 PO
--- NOTE | 2020-12-05 12:38 | NUR ---
NOT IN LOBBY TO REVITAL
[2020-12-05 12:51] LABS: BASOPHILS % (AUTO) 1 % (0-1); EOSINOPHILS % (AUTO) 1 % (1-7); LYMPHOCYTES % (AUTO) 8 % (22-44); MEAN CORPUSCULAR HEMOGLOBIN 31.9 pg (27.5-34.5); MEAN CORPUSCULAR HGB CONC 33.8 g/dL (33.2-36.2); MONOCYTES % (AUTO) 7 % (2-9); NEUTROPHILS % (AUTO) 84 % (42-75); PLATELET COUNT 232 x10^3/uL (130-400); RED BLOOD COUNT 4.45 x10^6/uL (4.38-5.82); RED CELL DISTRIBUTION WIDTH 14.2 % (9.4-14.8)
[2020-12-05 13:03] LABS: ALANINE AMINOTRANSFERASE 27 U/L (12-78); ALBUMIN 3.2 g/dL (3.4-5.0); ANION GAP 5 mmol/L (5-15); CALCIUM 8.6 mg/dL (8.5-10.1); CHLORIDE 102 mmol/L (98-107)
[2020-12-05 13:08] LABS: ALKALINE PHOSPHATASE 37 U/L (45-117); BILIRUBIN,TOTAL 0.4 mg/dL (0.2-1.0); CREATININE 0.95 mg/dL (0.7-1.3)
--- NOTE | 2020-12-05 14:07 | NUR ---
manager endoscopy: Pt WHEELED To room from lobby at this time.
--- NOTE | 2020-12-05 14:10 | NUR ---
PT C/O L-LEG PAIN FOR A COUPLE DAYS, PT STATES THE EDEMA "WATER SWELLING" HAS BEEN GOING ON FOR 1 YR. PT STATES HE WEARS COMPRESSION SOCKS AND THINKS HE LEFT THEM ON A LITTLE TOO LONG. ERYTHEMA & SWELLING NOTED, NO DRAINAGE. CALL LIGHT WITHIN REACH, BED IN LOWEST POSTION, BED RAILS UP X2
--- NOTE | 2020-12-05 14:13 | NUR ---
ERP AT BS FOR EVAL
[2020-12-05] MEDS ORDERED: SODIUM CHLORIDE FLUSH 10ML SYR IVF ONE (14:30)
[2020-12-05] MEDS ORDERED: CEFTRIAXONE 1,000 MG in DEXTROSE 5% 50 ML IVPB ONE (14:30)
[2020-12-05] MEDS ORDERED: ONDANSETRON 2MG/ML, 2ML ONE (15:06)
[2020-12-05] MEDS ORDERED: HYDROmorphone 1 MG/ML, 1ML INJ ONE (15:06)
[2020-12-05] MEDS ORDERED: SODIUM CHLORIDE FLUSH 10ML SYR IVF PRN (15:30)
[2020-12-05] MEDS ORDERED: ONDANSETRON 2MG/ML, 2ML IVPush ONE (15:30)
[2020-12-05] MEDS ORDERED: HYDROmorphone 1 MG/ML, 1ML INJ IV ONE (15:30)
--- NOTE | 2020-12-05 15:39 | NUR ---
Patient is resting comfortably in bed. Bed in lowest, rails engaged, call light on lap. Vital Signs within normal limits. WCTM. no needs at this time
--- NOTE | 2020-12-05 15:53 | NUR ---
Pt to be admitted to [facility] , room 346. Report called to Berta.
[2020-12-05] MEDS ORDERED: ACETAMINOPHEN 325 MG TABLET PO PRN (18:30)
[2020-12-05] MEDS ORDERED: ONDANSETRON ODT 4 MG PO PRN (18:30)
[2020-12-05] MEDS ORDERED: BISACODYL 10 MG SUPP PR PRN (18:30)
[2020-12-05] MEDS ORDERED: morphine SULFATE 10 MG/ML, 1ML IVPush PRN (18:30)
[2020-12-05] MEDS ORDERED: POLYETHYLENE GLYCOL 17 GM PACKET PO PRN (18:30)
[2020-12-05] MEDS ORDERED: GABAPENTIN 300 MG CAPSULE PO PRN (18:30)
[2020-12-05] MEDS ORDERED: ONDANSETRON 2MG/ML, 2ML IVPush PRN (18:30)
[2020-12-05] MEDS ORDERED: CYCLOBENZAPRINE 10 MG TABLET PO PRN (18:30)
[2020-12-05] MEDS ORDERED: VANCOMYCIN PER PHARMACY MC PRN (18:30)
[2020-12-05] MEDS ORDERED: VANCOMYCIN 2,500 MG in SODIUM CHLORIDE 0.9% 500 ML IV ONE (19:00)
[2020-12-05] MEDS ORDERED: PHARMACOKINETIC MONITORING MC PRN (19:00)
[2020-12-05] MEDS ORDERED: PHARMACOKINETIC CONSULTATION MC ONE (19:00)
[2020-12-05 19:51] VITALS: BP 142/91
[2020-12-05] MEDS ORDERED: MELATONIN 5 MG TABLET PO PRN (21:00)
[2020-12-05] MEDS ORDERED: TEMAZEPAM 15 MG CAPSULE PO PRN (21:00)
[2020-12-05] MEDS: ATORVASTATIN 80 MG TABLET PO SCH (21:11)
[2020-12-05] MEDS: LEVETIRACETAM 500 MG TABLET PO SCH (21:11)
[2020-12-05] MEDS: SODIUM CHLORIDE 0.9% 1,000 ML IV SCH (21:12)
[2020-12-05] MEDS: METOPROLOL TARTRATE 25 MG TAB PO SCH (21:12)
[2020-12-05] MEDS: AMPICILLIN/SULBACTAM 3 GM in SODIUM CHLORIDE 0.9% 100 ML IV SCH (21:12)
[2020-12-05] MEDS: OXYcodone IR 5MG TABLET PO PRN ×2 (21:12→21:55)
[2020-12-05 21:37] LABS: HCT (SEDRATE) 40.8 % (39.2-51.8)
[2020-12-05 22:49] LABS: MICROSCOPIC NOT IND
[2020-12-06 00:51] VITALS: BP 135/87
[2020-12-06] MEDS: OXYcodone IR 5MG TABLET PO PRN ×6 (01:55→22:23)
[2020-12-06] MEDS: AMPICILLIN/SULBACTAM 3 GM in SODIUM CHLORIDE 0.9% 100 ML IV SCH ×4 (03:10→20:41)
[2020-12-06 04:33] LABS: MEAN CORPUSCULAR HEMOGLOBIN 31.7 pg (27.5-34.5); MEAN CORPUSCULAR HGB CONC 33.3 g/dL (33.2-36.2); MEAN PLATELET VOLUME 7.1 fL (7.4-10.4); PLATELET COUNT 193 x10^3/uL (130-400); RED BLOOD COUNT 3.99 x10^6/uL (4.38-5.82); RED CELL DISTRIBUTION WIDTH 14.2 % (9.4-14.8)
[2020-12-06 04:41] LABS: ALBUMIN 2.6 g/dL (3.4-5.0); ANION GAP 5 mmol/L (5-15); CALCIUM 8.1 mg/dL (8.5-10.1); CHLORIDE 107 mmol/L (98-107)
[2020-12-06 04:50] LABS: ALANINE AMINOTRANSFERASE 21 U/L (12-78); ALKALINE PHOSPHATASE 34 U/L (45-117); BILIRUBIN,TOTAL 0.6 mg/dL (0.2-1.0); CHOLESTEROL, TOTAL 154 mg/dL (140-239); CREATININE 0.68 mg/dL (0.7-1.3); FREE T4 (FREE THYROXINE) 0.97 ng/dL (0.76-1.46); HDL CHOL % 34 % (26-37); HDL CHOLESTEROL (DIRECT) 52 mg/dL (40-60); LDL CHOLESTEROL,CALCULATED 84 mg/dL (54-169); LDL/HDL RATIO 1.6 (0.5-3.0); TOTAL PROTEIN 5.9 g/dL (6.4-8.2); TRIGLYCERIDES 90 mg/dL (50-200); VLDL CHOLESTEROL 18 mg/dL (0-25)
[2020-12-06 05:01] LABS: <PLATELET ESTIMATE> ADEQUATE; ANISOCYTOSIS 1+; BAND#(MANUAL) 0.26 x10^3/uL; BANDS%(MANUAL) 3 % (0-7); EOS#(MANUAL) 0.26 x10^3/uL (0.0-0.4); EOS% (MANUAL) 3 % (1-7); LYMPHS% (MANUAL) 7 % (22-44); METAMYELOCYTES# (MANUAL) 0.17 x10^3/uL (0-0); METAMYELOCYTES% (MANUAL) 2 % (0-1); MONOS#(MANUAL) 0.26 x10^3/uL (0.3-2.7); MONOS% (MANUAL) 3 % (2-9); SEG#(MANUAL) 6.97 x10^3/uL (1.8-6.8); SEGS% (MANUAL) 82 % (42-75); SMALL PLATELETS 1+
[2020-12-06 07:22] VITALS: BP 138/89
[2020-12-06] MEDS: LEVETIRACETAM 500 MG TABLET PO SCH ×2 (08:23→20:41)
[2020-12-06] MEDS: LOSARTAN 25MG TABLET PO SCH (08:23)
[2020-12-06] MEDS: SPIRONOLACTONE 25 MG TABLET PO SCH (08:23)
[2020-12-06] MEDS: METOPROLOL TARTRATE 25 MG TAB PO SCH ×2 (08:23→20:41)
[2020-12-06] MEDS: LORATADINE 10 MG TABLET PO SCH (08:23)
[2020-12-06] MEDS: SENNA/DOCUSATE TABLET PO SCH (08:27)
[2020-12-06] MEDS: VANCOMYCIN 1,900 MG in SODIUM CHLORIDE 0.9% 250 ML IV SCH ×2 (11:20→22:23)
[2020-12-06] MEDS: SODIUM CHLORIDE 0.9% 1,000 ML IV SCH (11:23)
[2020-12-06 14:24] VITALS: BP 123/80
[2020-12-06] MEDS: RIVAROXABAN 20 MG TABLET PO SCH (18:08)
[2020-12-06 19:50] VITALS: BP 155/98
[2020-12-06] MEDS: ATORVASTATIN 80 MG TABLET PO SCH (20:41)
[2020-12-07 00:23] VITALS: BP 157/94
[2020-12-07] MEDS: OXYcodone IR 5MG TABLET PO PRN ×3 (03:09→13:57)
[2020-12-07] MEDS: AMPICILLIN/SULBACTAM 3 GM in SODIUM CHLORIDE 0.9% 100 ML IV SCH ×3 (03:09→16:12)
[2020-12-07 05:50] LABS: BASOPHILS % (AUTO) 0 % (0-1); EOSINOPHILS % (AUTO) 1 % (1-7); LYMPHOCYTES % (AUTO) 11 % (22-44); MEAN CORPUSCULAR HEMOGLOBIN 31.6 pg (27.5-34.5); MEAN CORPUSCULAR HGB CONC 33.5 g/dL (33.2-36.2); MEAN PLATELET VOLUME 7.3 fL (7.4-10.4); MONOCYTES % (AUTO) 8 % (2-9); NEUTROPHILS % (AUTO) 80 % (42-75); PLATELET COUNT 188 x10^3/uL (130-400); RED BLOOD COUNT 3.89 x10^6/uL (4.38-5.82); RED CELL DISTRIBUTION WIDTH 14.6 % (9.4-14.8)
[2020-12-07 06:06] LABS: ANION GAP 4 mmol/L (5-15); CALCIUM 8.6 mg/dL (8.5-10.1); CHLORIDE 110 mmol/L (98-107); CREATININE 0.54 mg/dL (0.7-1.3)
[2020-12-07] MEDS: LOSARTAN 25MG TABLET PO SCH (08:45)
[2020-12-07] MEDS: METOPROLOL TARTRATE 25 MG TAB PO SCH ×2 (08:45→21:20)
[2020-12-07] MEDS: LEVETIRACETAM 500 MG TABLET PO SCH ×2 (08:45→21:20)
[2020-12-07] MEDS: SPIRONOLACTONE 25 MG TABLET PO SCH (08:45)
[2020-12-07] MEDS: LORATADINE 10 MG TABLET PO SCH (08:46)
[2020-12-07] MEDS: SODIUM CHLORIDE 0.9% 1,000 ML IV SCH (08:57)
[2020-12-07] MEDS: SENNA/DOCUSATE TABLET PO SCH (08:57)
[2020-12-07 09:32] VITALS: BP 156/111
[2020-12-07] MEDS: VANCOMYCIN 1,800 MG in SODIUM CHLORIDE 0.9% 250 ML IV SCH ×2 (11:58→21:20)
[2020-12-07] MEDS ORDERED: OMNIPAQUE 350 MG/ML, 100ML BOTTLE ONE (15:10)
[2020-12-07] MEDS: RIVAROXABAN 20 MG TABLET PO SCH (16:12)
[2020-12-07] MEDS: hydrALAzine 20 MG/ML, 1ML IVPush PRN (16:12)
[2020-12-07 16:49] VITALS: BP 152/100
[2020-12-07 20:29] VITALS: BP 165/105
[2020-12-07] MEDS: ATORVASTATIN 80 MG TABLET PO SCH (21:20)
[2020-12-08] MEDS: AMPICILLIN/SULBACTAM 3 GM in SODIUM CHLORIDE 0.9% 100 ML IV SCH ×3 (00:02→10:50)
[2020-12-08 01:52] VITALS: BP 146/90
[2020-12-08 03:24] VITALS: BP 134/86
[2020-12-08] MEDS ORDERED: LORazepam 1MG TABLET PO ONE (04:00)
[2020-12-08 04:54] LABS: BASOPHILS % (AUTO) 0 % (0-1); EOSINOPHILS % (AUTO) 0 % (1-7); LYMPHOCYTES % (AUTO) 13 % (22-44); MEAN CORPUSCULAR HEMOGLOBIN 31.7 pg (27.5-34.5); MEAN CORPUSCULAR HGB CONC 34.1 g/dL (33.2-36.2); MEAN PLATELET VOLUME 7.1 fL (7.4-10.4); MONOCYTES % (AUTO) 10 % (2-9); NEUTROPHILS % (AUTO) 77 % (42-75); PLATELET COUNT 226 x10^3/uL (130-400); RED BLOOD COUNT 4.22 x10^6/uL (4.38-5.82); RED CELL DISTRIBUTION WIDTH 14.2 % (9.4-14.8)
[2020-12-08 05:04] LABS: CALCIUM 8.7 mg/dL (8.5-10.1); CHLORIDE 111 mmol/L (98-107)
[2020-12-08 05:06] LABS: ANION GAP 8 mmol/L (5-15); CREATININE 0.59 mg/dL (0.7-1.3)
[2020-12-08] MEDS: VANCOMYCIN 1,800 MG in SODIUM CHLORIDE 0.9% 250 ML IV SCH ×2 (05:39→14:30)
[2020-12-08 06:59] VITALS: BP 138/91
[2020-12-08] MEDS ORDERED: POTASSIUM CHLORIDE 20 MEQ TAB.ER.PRT PO ONE (07:30)
[2020-12-08] MEDS ORDERED: FENTANYL PF 100 MCG/2ML ONE (08:52)
[2020-12-08] MEDS ORDERED: NALOXONE 1 MG/ML, 2ML ONE (08:52)
[2020-12-08] MEDS ORDERED: MIDAZOLAM 1 MG/ML, 5ML ONE ×2 (08:52)
[2020-12-08] MEDS ORDERED: FLUMAZENIL 0.1 MG/1 ML, 5ML ONE (08:52)
[2020-12-08] MEDS ORDERED: GADOTERATE 10 MMOL/20ML SYR ONE (10:11)
[2020-12-08] MEDS: SPIRONOLACTONE 25 MG TABLET PO SCH (10:44)
[2020-12-08] MEDS: METOPROLOL TARTRATE 25 MG TAB PO SCH (10:44)
[2020-12-08] MEDS: LOSARTAN 25MG TABLET PO SCH (10:44)
[2020-12-08] MEDS: LEVETIRACETAM 500 MG TABLET PO SCH (10:45)
[2020-12-08] MEDS: LORATADINE 10 MG TABLET PO SCH (10:45)
[2020-12-08] MEDS: SENNA/DOCUSATE TABLET PO SCH (10:45)
[2020-12-08 12:52] VITALS: BP 160/102
[2020-12-08] MEDS: hydrALAzine 20 MG/ML, 1ML IVPush PRN (12:58)
[2020-12-08] MEDS ORDERED: LACT1CAP11 PO (13:57)
[2020-12-08] MEDS ORDERED: OXYC5TAB98 PO (13:57)
[2020-12-08] MEDS ORDERED: SENN-211 PO (13:57)
[2020-12-08] MEDS ORDERED: AMOX1TAB64 PO (13:57)
[2020-12-08] MEDS ORDERED: LINE600T12 PO (13:59)
== END 2020-12-08 15:43 | disposition home or self-care (01) | DRG 383 ==
LOC: ED 12:49 → EDIP 15:09 → 3N 15:37
PROVIDERS: ADMIT Internal Medicine; ATTEND Internal Medicine
DX: L03.116 Cellulitis of left lower limb (principal); E87.2 Acidosis; C61 Malignant neoplasm of prostate; E87.1 Hypo-osmolality and hyponatremia; E78.5 Hyperlipidemia, unspecified; K21.9 Gastro-esophageal reflux disease without esophagitis; G40.909 Epilepsy, unspecified, not intractable, without status epilepticus; F40.240 Claustrophobia; I10 Essential (primary) hypertension; Z79.01 Long term (current) use of anticoagulants; Z88.0 Allergy status to penicillin; Z86.73 Personal history of transient ischemic attack (TIA), and cerebral infarction without residual deficits; Z86.718 Personal history of other venous thrombosis and embolism; Z86.711 Personal history of pulmonary embolism; Z86.72 Personal history of thrombophlebitis; Z85.828 Personal history of other malignant neoplasm of skin; Z92.3 Personal history of irradiation; Z80.42 Family history of malignant neoplasm of prostate; Z79.899 Other long term (current) drug therapy
CPT/HCPCS: 36415; 71046; 74177; 80048; 80053; 80061; 80202; 81003; 83036; 83605; 83735; 83880; 84439; 84443; 85025; 85651; 86140; 87040; 93306; 93356; 96374; 96375; 99156; 99157; G0378; J0295; J0696; J1170; J2250; J2405; J3010; J3370; Q9967; A9575; J0360; J2270; J2310; J7030; J7040; J7050